=== PATIENT | female | born 1995 | race Hispanic/Latino ===

== ENCOUNTER 2024-05-07 08:50 | Inpatient (IN) | payer MEDICAID ==
[~2024-05-07] VITALS: Ht 152.4 cm; Wt 93.9 kg
[2024-05-07 09:27] LABS: APPEARANCE,URINE CLEAR (CLEAR); BILIRUBIN,URINE NEGATIVE (NEGATIVE); GLUCOSE, URINE (UA) NEGATIVE (NEGATIVE); KETONES,URINE NEGATIVE (NEGATIVE); LEUKOCYTE ESTERASE ,URINE NEGATIVE Leu/uL (NEGATIVE); NITRATE,URINE NEGATIVE (NEGATIVE); OCCULT BLOOD,URINE MODERATE (NEGATIVE); PROTEIN,URINE NEGATIVE (NEGATIVE); UROBILINOGEN,URINE 0.2 mg/dL (0.2-1.0)
[2024-05-07 09:29] LABS: ADD UA MICROSCOPIC YES; COLOR,URINE STRAW (YELLOW)
[2024-05-07 09:31] LABS: BACTERIA,URINE RARE /HPF (None Seen); SQUAMOUS EPITHELIAL CELL,UR MOD /HPF (0-2)
[2024-05-07 09:36] LABS: AMPHET/METH SCREEN,URINE NEGATIVE (NEGATIVE); BARBITURATE SCREEN, URINE NEGATIVE (NEGATIVE); BENZODIAZEPINES SCREEN,URINE NEGATIVE (NEGATIVE); CANNABINOID SCREEN,URINE NEGATIVE (NEGATIVE); COCAINE SCREEN,URINE NEGATIVE (NEGATIVE); OPIATE SCREEN,URINE NEGATIVE (NEGATIVE); PHENCYCLIDINE SCREEN,URINE NEGATIVE (NEGATIVE)
[2024-05-07 09:38] LABS: BASOPHILS # (AUTO) 0.02 K/uL (0.00-0.20); BASOPHILS % (AUTO) 0.2 % (0.0-5.0); EOSINOPHILS # (AUTO) 0.09 K/uL (0.00-0.70); EOSINOPHILS % (AUTO) 0.9 % (0.0-8.0); HEMATOCRIT 42.9 % (36-48); IMMATURE GRANULOCYTE ABSOLUTE 0.02 K/uL (0-1); LYMPHOCYTES # (AUTO) 1.6 K/uL (1.0-4.8); LYMPHOCYTES % (AUTO) 15.8 % (21.0-51.0); MEAN CORPUSCULAR HEMOGLOBIN 27.3 pg (27.0-33.0); MEAN CORPUSCULAR HGB CONC 32.9 g/dL (32.0-36.0); MONOCYTES # (AUTO) 0.6 K/uL (0.1-1.0); MONOCYTES % (AUTO) 5.6 % (3.0-13.0); NEUTROPHILS # (AUTO) 7.8 K/uL (1.8-7.7); NEUTROPHILS % (AUTO) 77.3 % (40.0-77.0); PLATELET COUNT (AUTO) 236 K/uL (130-400); RED BLOOD CELL COUNT(AUTO) 5.17 MIL/uL (4.00-5.50); RED CELL DISTRIBUTION WIDTH 16.3 % (11.0-15.5); WHITE BLOOD COUNT (AUTO) 10.1 K/uL (4.8-10.8)
[2024-05-07 09:45] LABS: INR 0.94 (0.85-1.15); PROTHROMBIN TIME 10.2 SEC (9.6-11.6)
[2024-05-07 09:46] LABS: PARTIAL THROMBOPLASTIN TIME 27.1 SEC (26.3-35.5)
[2024-05-07 09:48] LABS: ALBUMIN 2.4 g/dL (3.5-5.0); BILIRUBIN,TOTAL 0.2 mg/dL (0.2-1.0); CREATININE 0.7 mg/dL (0.5-1.0); POTASSIUM 4.1 mmol/L (3.5-5.1); TOTAL PROTEIN, SERUM 6.7 g/dL (6.0-8.3); URIC ACID 4.5 mg/dL (2.6-7.2)
[2024-05-07] MEDS ORDERED: FAMOTIDINE 20MG VIAL IV PRN (10:00)
[2024-05-07] MEDS ORDERED: GENTAmicin SULFate 80 MG/2 ML 240 MG in 0.9%NACL 100ML 100 ML IV PRN (10:00)
[2024-05-07] MEDS ORDERED: METOCLOPRAMIDE 10 MG/2 ML VIAL IVP PRN (10:00)
[2024-05-07] MEDS: LACTATED RINGERS 1000ML IV PRN (10:13)
[2024-05-07] MEDS: LABETALOL 20MG VIAL IV PRN (10:14)
[2024-05-07 10:25] LABS: HIV 1&2 ANTIBODY Non-Reactive (Negative); HIV-1 p24 Antigen Non-Reactive (Negative)
[2024-05-07] MEDS ORDERED: MISOPROSTOL 200 MCG TABLET ONE (10:29)
[2024-05-07] MEDS: CLINDAMYCIN IVPB 900MG/50ML 50 ML IV PRN (10:44)
[2024-05-07] MEDS: CITRIC ACID/SODIUM CITRATE 30 ML UDCUP PO PRN (11:45)
[2024-05-07] MEDS ORDERED: MORPHINE PF 100MG/10ML AMP IV ONE (11:50)
[2024-05-07] MEDS: CALDOLOR 800MG+NS 250ML 250 ML IV PRN (12:58)
[2024-05-07] MEDS: OXYTOCIN-LR 30 UNITS/500ML 500 ML IV PRN (13:00)
[2024-05-07] MEDS ORDERED: 0.9%NACL 10ML VIAL IVP PRN (13:00)
[2024-05-07 14:27] LABS: RAPID PLASMA REAGIN NONREACTIVE (NONREACTIVE)
[2024-05-07 16:00] VITALS: BP 133/81; PULSE 74; RESP 20
[2024-05-07 19:05] VITALS: BP 148/88; PULSE 86; RESP 17
[2024-05-07] MEDS: CALDOLOR 800MG+NS 250ML 250 ML IV SCH (20:40)
[2024-05-07] MEDS: DEXTROSE 5 %-0.45 % NACL 1,000 ML IV PRN (20:40)
[2024-05-08 00:02] VITALS: BP 125/69; PULSE 100; RESP 18
[2024-05-08] MEDS: PROMETHAZINE HCL 25 MG/ML 1ML AMPULE IM PRN (03:34)
[2024-05-08] MEDS: MEPERIDINE-PF 75 MG/ML SYG IM PRN (03:39)
[2024-05-08 04:02] VITALS: BP 130/72; PULSE 95; RESP 18
[2024-05-08] MEDS ORDERED: LANOLIN 30GM OINTMENT TP PRN (05:30)
[2024-05-08] MEDS ORDERED: acetaMINOPHEN 500 MG TABLET PO PRN (05:30)
[2024-05-08] MEDS ORDERED: BisaCODYL 10 MG SUPP.RECT RC PRN (05:30)
[2024-05-08] MEDS ORDERED: HYDROcodone/APAP 5/325 1 TAB TABLET PO PRN (05:30)
[2024-05-08] MEDS ORDERED: acetaMINOPHEN WITH coDEINE 1 TAB TAB PO PRN (05:30)
[2024-05-08 06:32] LABS: HEMATOCRIT 35.9 % (36-48); MEAN CORPUSCULAR HEMOGLOBIN 26.8 pg (27.0-33.0); MEAN CORPUSCULAR HGB CONC 32.6 g/dL (32.0-36.0); MEAN CORPUSCULAR VOLUME 82.2 fL (79-99); RED BLOOD CELL COUNT(AUTO) 4.37 MIL/uL (4.00-5.50); RED CELL DISTRIBUTION WIDTH 16.6 % (11.0-15.5); WHITE BLOOD COUNT (AUTO) 13.8 K/uL (4.8-10.8)
[2024-05-08] MEDS: DIPH,PERTUSS(ACELL),TET VAC/PF 0.5 ML VIAL IM SCH (06:34)
[2024-05-08 08:00] VITALS: BP 127/73; PULSE 96; RESP 18
[2024-05-08] MEDS: doCUSate SODIUM 100 MG CAP PO SCH (09:15)
[2024-05-08 11:30] VITALS: BP 127/87; PULSE 106; RESP 18
[2024-05-08] MEDS: SIMETHICONE 80 MG TAB.CHEW PO PRN (13:50)
[2024-05-08] MEDS: IBUPROFEN 600 MG TABLET PO PRN (13:50)
== END 2024-05-08 15:44 | disposition home or self-care (01) | DRG 539 ==
LOC: EDH 08:50 → LDH 08:51 → OBSVTOIN 08:51 → WSH 15:05
PROVIDERS: ADMIT Obstetrics & Gynecology; ATTEND Obstetrics & Gynecology
PROC: 0UB70ZZ Excision of Bilateral Fallopian Tubes, Open Approach (ICD-10-PCS; 2024-05-07)
PROC: 10D00Z1 Extraction of Products of Conception, Low, Open Approach (ICD-10-PCS; principal; 2024-05-07 11:00)
DX: O41.03X0 Oligohydramnios, third trimester, not applicable or unspecified (principal); O13.4 Gestational [pregnancy-induced] hypertension without significant proteinuria, complicating childbirth; O34.211 Maternal care for low transverse scar from previous cesarean delivery; Z37.0 Single live birth; Z3A.37 37 weeks gestation of pregnancy; Z30.2 Encounter for sterilization
CPT/HCPCS: 36415; 59510; 76805; 80053; 80305; 81001; 84550; 85025; 85027; 85384; 85610; 85730; 86592; 86701; 86850; 86900; 86901; 87340; 87390; 88302; 90715; A4344; G0378; J1741; J2175; J2274; J2550; J3490; J7120; A4248